=== PATIENT | male | born 2000 | race Caucasian/White ===

== ENCOUNTER 2021-09-22 20:02 | Inpatient (IN) | payer SELFPAY ==
[~2021-09-22] VITALS: Ht 157.5 cm; Wt 77.3 kg
[2021-09-22 20:44] LABS: BASO # 0.1 K/mm3 (0.0-0.2); BASO % 0.7 % (0.0-2.0); EOS # 0.2 K/mm3 (0.0-0.7); EOS % 1.4 % (0.0-4.0); GRAN # 11.6 K/mm3 (1.4-6.5); GRAN % 87.4 % (42.2-75.2); HEMATOCRIT 38.9 % (36.0-47.0); HEMOGLOBIN 13.8 g/dl (12.5-16.1); LYMPH # 0.6 K/mm3 (1.2-3.4); LYMPH % 4.4 % (20.0-51.0); MEAN CELL VOLUME 93 fl (80.0-95.0); MEAN CORPUSCULAR HEMOGLOBIN 33 pg (26-32); MEAN CORPUSCULAR HGB CONC 36 g/dl (33.0-37.0); MEAN PLATELET VOLUME 9.6 fl (7.4-10.4); MONO # 0.7 K/mm3 (0.1-0.6); MONO % 5.6 % (1.7-9.3); PLATELET COUNT 279 K/mm3 (130-400); RED BLOOD COUNT 4.19 M/mm3 (4.20-5.60); REDCELL DISTRIBUTION WIDTH-CV 12.4 % (11.5-14.5)
[2021-09-22 21:03] LABS: ALBUMIN 4.1 gm/dL (3.5-5.0); BILIRUBIN,TOTAL 0.3 mg/dL (0.2-1.2); CALCIUM 8.7 mg/dL (8.4-10.2); CREATININE, serum 1.05 mg/dL (0.72-1.25); POTASSIUM 4.1 mmol/L (3.5-4.5); TOTAL PROTEIN 7.3 gm/dL (6.2-8.1)
[2021-09-22] MEDS ORDERED: INTUNIV2 MG PO (22:45)
[2021-09-22] MEDS ORDERED: DESYREL 50MG50 MG PO (22:45)
[2021-09-22] MEDS ORDERED: SINGULAIR 110 MG/TAB PO (22:46)
[2021-09-22] MEDS ORDERED: FLOVENT 110MCG7.9 GM IH (22:46)
[2021-09-22] MEDS ORDERED: XOPENEX HF0.045 MG/A IH (22:47)
[2021-09-22] MEDS ORDERED: LEVOXYL0.112 MG PO (22:47)
[2021-09-22] MEDS ORDERED: LEVOXYL0.125 MG PO (22:47)
[2021-09-22] MEDS ORDERED: ONE-A-DAY ESSE1 EACH PO (22:48)
[2021-09-22] MEDS ORDERED: VITAMIN B COMPL1 SGL PO (22:48)
[2021-09-22] MEDS ORDERED: VITAMIN D31000 IU PO (22:48)
[2021-09-22 23:52] VITALS: BP 98/53; PULSE 103; TEMP 98.2
--- NOTE | 2021-09-23 00:02 | NUR ---
PATIENT ARRIVED TO ROOM 317 AT THIS TIME FROM THE ED. PATIENTS MOTHER/GUARDIAN IS AT PATIENTS BEDSIDE. PATIENT ABLE TO AMBULATE INDEPENDENTLY. V/S STABLE. PATIENT AND MOTHER ORIENTED TO ROOM.
--- NOTE | 2021-09-23 05:35 | NUR ---
PATIENT IS VERY SWEET. HE IS CALM AND COOPERTIVE WITH NURSING CARE LONG YOU EXPLAIN TO HIM WHAT YOU ARE DOING. HIS MOTHER IS AT BEDSIDE TO HELP. SHE STATED PATIENT HAS BEEN HOSPITALIZED MANY TIMES IN HIS LIFE AND TAKES IT LIKE A TROOPER. NO NEW ISSUES NOTED OR REPORTED BY PATIENT OR HIS MOTHER.
[2021-09-23 06:15] VITALS: BP 133/77; PULSE 88
[2021-09-23 08:00] VITALS: BP 135/62; PULSE 103; TEMP 97.7
[2021-09-23 09:28] LABS: HEMATOCRIT 41.3 % (36.0-47.0); HEMOGLOBIN 14.1 g/dl (12.5-16.1); MEAN CELL VOLUME 97 fl (80.0-95.0); MEAN CORPUSCULAR HEMOGLOBIN 33 pg (26-32); MEAN CORPUSCULAR HGB CONC 34 g/dl (33.0-37.0); MEAN PLATELET VOLUME 9.6 fl (7.4-10.4); PLATELET COUNT 285 K/mm3 (130-400); RED BLOOD COUNT 4.28 M/mm3 (4.20-5.60); REDCELL DISTRIBUTION WIDTH-CV 12.7 % (11.5-14.5)
[2021-09-23 09:39] LABS: CALCIUM 8.9 mg/dL (8.4-10.2); CREATININE, serum 1.05 mg/dL (0.72-1.25); MAGNESIUM 2.1 mg/dL (1.6-2.6); POTASSIUM 4.4 mmol/L (3.5-4.5)
[2021-09-23 09:53] LABS: BAND 19 % (0-10); LYMPHOCYTE 3 % (20.0-51.0); NEUTROPHILS 78 % (42.0-75.2)
[2021-09-23 09:54] LABS: PLATELET ESTIMATE NORMAL (NORMAL)
--- NOTE | 2021-09-23 11:15 | NUR ---
Scheduled medications given. Shift assessment performed. Patient in a very pleasant mood. Patient currently on RA and denies any pain, discomfort, SOA, or further needs at this time. VSS. Patient A&O. Mother at the bedside.
[2021-09-23] MEDS ORDERED: DOXYCYCLINE 10100 MG PO (11:34)
[2021-09-23] MEDS ORDERED: 00186-0370-20 IH (11:34)
[2021-09-23] MEDS ORDERED: PREDNISONE50 MG PO (11:36)
[2021-09-23 12:00] VITALS: BP 129/62; PULSE 100; TEMP 97.5
--- NOTE | 2021-09-23 12:44 | NUR ---
Patient deemed fit for discharge. Discharge education/instructions given. IV DC'd, catheter intact, no signs of phlebitis. Patient denies any pain, discomfort, SOA, or further needs at this time. VSS. Patient A&O. Mother (DPOA) verbalized an understanding of the teaching. Patient ambulated from building escorted by [facility] Staff. Mother transporting home.
== END 2021-09-23 12:30 | disposition home or self-care (01) | DRG 202 ==
LOC: COL.ER 20:02 → MEDICAL 22:10
PROVIDERS: Personal Emergency Response Attendant; Student in an Organized Health Care Education/Training Program; ADMIT Internal Medicine
DX: J45.901 Unspecified asthma with (acute) exacerbation (principal); J96.01 Acute respiratory failure with hypoxia; R65.10 Systemic inflammatory response syndrome (SIRS) of non-infectious origin without acute organ dysfunction; G47.30 Sleep apnea, unspecified; I27.20 Pulmonary hypertension, unspecified; E03.9 Hypothyroidism, unspecified; Z20.822 Contact with and (suspected) exposure to COVID-19; Q90.9 Down syndrome, unspecified; Z79.52 Long term (current) use of systemic steroids
CPT/HCPCS: 99223-AI; 99239; J1650; J2405; J2920; J2930; J7040